=== PATIENT | male | born 1990 | race Caucasian/White ===

== ENCOUNTER 2020-01-21 10:30 | Emergency (ER) | payer OTHER ==
[~2020-01-21] VITALS: Ht 180.3 cm; Wt 106.6 kg
[2020-01-21 11:11] LABS: HEMATOCRIT 51.4 % (42.0-52.0); HEMOGLOBIN 17.9 gm/dL (14.0-18.0); MCH 31.2 pg (26.0-34.0); MCHC 34.9 g/dL (28.0-37.0); MCV 89.4 fL (80.0-100.0); RBC 5.75 mil/uL (4.50-6.00); RDW 13.5 % (10.5-14.5); WBC 6.9 thou/uL (4.0-11.0)
[2020-01-21 11:27] LABS: URINE BILIRUBIN NEGATIVE (Negative); URINE BLOOD NEGATIVE (Negative); URINE CLARITY CLEAR; URINE COLOR YELLOW; URINE GLUCOSE-RANDOM* NEGATIVE (Negative); URINE KETONES NEGATIVE (Negative); URINE LEUKOCYTES-REFLEX NEGATIVE (Negative); URINE NITRITE-REFLEX NEGATIVE (Negative); URINE PROTEIN (DIPSTICK) NEGATIVE (Negative); URINE SPECIFIC GRAVITY >= 1.030 (1.005-1.035); URINE UROBILINOGEN 0.2 E.U./dl (0.2-1.0)
[2020-01-21 11:37] LABS: ALBUMIN 4.1 g/dL (3.4-5.0); TOTAL BILIRUBIN 0.8 mg/dL (<0.1-1.0); TOTAL PROTEIN 7.8 g/dL (6.4-8.2)
[2020-01-21 12:22] VITALS: BP 143/81
== END 2020-01-21 12:23 | disposition home or self-care (01) ==
LOC: ER 10:30
PROVIDERS: Student in an Organized Health Care Education/Training Program
DX: R10.31 Right lower quadrant pain (principal)

== ENCOUNTER → 2020-01-29 | Outpatient (CLI) | payer OTHER | LOC: ULTRA 08:29 | DX: R10.11 Right upper quadrant pain (principal) ==